=== PATIENT | female | born 1970 ===

== ENCOUNTER 2025-01-20 06:03 | Day surgery (SDC) | payer BC, SELFPAY ==
[2025-01-11 14:02] VITALS: BMI 31.4
--- NOTE | 2025-01-13 14:54 | PTCARENOTE ---
Abnormal ECG 01/11/25, reviewed by Dr Green, no further interventions requested.
[2025-01-20] VITALS (11 sets, daily range): BP systolic 0–121; BP diastolic 60–74; BMI 31.4
[2025-01-20] MEDS: LOVENOX 40 MG SC (06:42)
[2025-01-20] MEDS: NORMOSOL-R/PLASMALYTE-A 1000 IV (06:42)
[2025-01-20] MEDS: TYLENOL 1000 MG PO (06:50)
[2025-01-20] MEDS: DEMEROL 12.5 MG IV (12:01)
--- NOTE | 2025-01-20 16:32 | W.IMMPOSTOP ---
Surgical Immed Post Op Note
-
Primary Surgeon: NOAH Berry MD
Assisting Surgeon:
Pre-op Diagnosis: Macromastia
Post-op Diagnosis: Same
Procedure Performed: Bilateral breast reduction, suction assisted lipectomy of trunk
Anesthesia Type: general
Specimen / Cultures: Right and left breast tissue
Estimated Blood Loss: 50 cc
Complications: None
Operative Findings: As expected
--- NOTE | 2025-01-20 16:32 | OR.RPT ---
Addendum entered and electronically signed by Mickey Berry MD 01/20/25 16:50:
Correction: A total of approximately 800 cc of Lipo aspirate was removed.
Original Note:
Operative Report
Operative Report
Date of surgery: 01/20/2025
Surgeon: NOAH Berry MD
Preoperative diagnosis: Macromastia, cervicodynia, intermittent intertrigo, accessory breast tissue
Postoperative diagnosis: Same
Procedure:
1. Bilateral breast reduction
2. Suction assisted lipectomy of trunk
Anesthesia: General
EBL: 50 cc
Complications: None
Specimens: Right breast tissue, left breast tissue
Indications for procedure: Patient is a 54-year-old female with longstanding history of gigantomastia resulting in chronic shoulder strap grooving, upper neck and back pain, intermittent intertrigo that was not corrected with conservative metrics.
She underwent continuous physical therapy for over 3 months without any improvement in symptoms. Provided documentation to this. Met the criteria for insurance based breast reduction per the policies medical necessity bulletin. As such we
discussed breast reduction surgery at length including risks such as resultant scars, potential asymmetry, need for repeat procedure, compromise of nipple areolar complex, hematoma, seroma, wound healing compromise and nerve changes. Of note she
had a history of factor V Leiden, not on anticoagulation, without any personal history of DVT or PE. Underwent prior surgeries without complications. As such we had a long conversation about DVT PE and the potential consequences as well as the
mechanisms by which we would attempt to minimize this possibility. A plan was made for both mechanical and chemical prophylaxis in the pre and postoperative phase. This was reviewed with the patient and her at length. Consents were signed
accordingly.
Procedure in detail: Patient was identified preoperatively and the surgical site was confirmed to be the bilateral breast and lateral chest wall. All questions were answered and consents were confirmed. With the patient standing in the upright
position, bilateral superior medial Pfeiffer pattern breast reductions were marked out. Patient had some axillary accessory breast tissue on the left that be amenable to suction assisted lipectomy. Furthermore there are areas of relative fullness of
the lateral chest wall were marked out to contour the breast appropriately. This confirmed that preoperative Lovenox have been administered and SCDs and BEAR hose were in place. Patient was taken back to the operating room placed supine on the
table. Anesthesia was induced and the patient was prepped and draped in usual sterile fashion using ChloraPrep solution. A Fonseca catheter was placed. Tremendous care was taken to ensure that knees were slightly flexed and SCD/antiembolism
stockings were in place for the duration. A timeout for patient safety was performed and was confirmed that preoperative antibiotics had been administered. The procedure began first on the right side with the injection 1% lidocaine with
epinephrine along the inframammary fold. All the incisions were then made with a 15 blade. The the nipple was marked with a 42 mm cookie cutter. The breast was placed under a temporary tourniquet and the superior medial pedicle was
de-epithelialized. The tourniquet was released and Bovie cautery was utilized to dissect out the pedicle. This was done down to the chest wall. The excess inferior and lateral tissue was then excised and sent for specimen. Approximately 1800 g
was removed from the right breast. Meticulous hemostasis was ensured and dilute Marcaine blocks were performed. A drain was left in place along the pectoralis intercostal fascia. The breast was then closed in layers using 2-0 Vicryl followed by
3-0 Monocryl and INSORB stapler, and 4-0 Monocryl. Drain was sutured in place with a 2-0 Prolene. It been determined that an adequate reduction been achieved and the nipple was in a good position. No evidence of vascular or venous compromise.
Attention was then drawn to the left side where the exact same procedure was performed. Local anesthesia was administered to the inframammary fold and the markings were incised with a 15 blade. Nipple was marked with a 42 mm cookie cutter. The
breast was placed under temporary tourniquet and the superior medial pedicle was de-epithelialized. The tourniquet was released and then the pedicle was dissected down to the chest wall. The inferior and lateral breast excess were sent as
specimens. The left side weighed approximately 1600 g. This was consistent with the relative asymmetry the patient expressed. Meticulous hemostasis was ensured and blocks were performed. A drain was left in place. The wound was then closed in
layers using 2-0 Vicryl followed by 3-0 Monocryl in sorb stapler and 4-0 Monocryl. Nipple also showed evidence of adequate perfusion without congestion. Attention was then drawn to the areas for suction assisted lipectomy. Tumescent solution
consisting of dilute lidocaine with epinephrine was distributed along the preaxilla and lateral chest wall as well as lateral breast. Appropriate amount of time was waited and then lipo dissection was performed off suction. Suction assisted
lipectomy was then performed including the area of accessory breast tissue on the left axilla to the bilateral chest wall and lateral breast. Total of approximately 100 cc Lipo aspirate was removed. Following this the patient had adequate
correction and significantly improved lateral breast contour. Access sites were closed with 5-0 fast. Confirmation of size and symmetry was done with the patient flexed in the upright position. All wounds were dressed with bacitracin ointment
followed by sterile gauze and Tegaderms. A surgical bra was placed for compression. Patient was extubated taken the PACU for further care. All counts were correct at the end the case. The case was performed without complication.
== END 2025-01-20 14:13 | disposition home or self-care (01) ==
LOC: SDS 06:03
PROVIDERS: ATTENDING PHYSICIAN Surgery Plastic and Reconstructive Surgery; FAMILY PHYSICIAN Internal Medicine
DX: N62 Hypertrophy of breast (principal); M54.2 Cervicalgia; L30.4 Erythema intertrigo
CPT/HCPCS: 19318; 88305; 36415; 93005

== ENCOUNTER → 2025-01-29 07:38 | Outpatient (REF) | payer BC, SELFPAY | LOC: RAD 07:38 | PROVIDERS: ATTENDING PHYSICIAN Surgery Plastic and Reconstructive Surgery; FAMILY PHYSICIAN Internal Medicine | DX: D68.59 Other primary thrombophilia (principal) | CPT/HCPCS: 93970 ==